=== PATIENT | male | born 2000 | race Caucasian/White ===

== ENCOUNTER 2022-06-04 19:19 | Day surgery (SDC) | payer BC ==
[2022-06-04] MEDS ORDERED: Sodium Chloride 0.9% 1,000 ML IV STA (19:58)
[2022-06-04] MEDS ORDERED: Sodium Chloride 0.9% 10 ML Syringe FLUSH PRN (19:58)
[2022-06-04] MEDS ORDERED: HYDROmorphone 0.5 MG/0.5 ML Syringe IVPUSH ONE (19:58)
[2022-06-04] MEDS ORDERED: Ondansetron 4 MG/2 ML SDV IVPUSH ONE (19:58)
[2022-06-04] MEDS ORDERED: Sodium Chloride 0.9% 10 ML Syringe FLUSH ONE (21:00)
[2022-06-04] MEDS ORDERED: Iopamidol 612 MG/ML 100 ML Bottle IVPUSH ONE (21:00)
[2022-06-04] MEDS ORDERED: Piperacillin/Tazobactam 4.5 GM in Sodium Chloride 0.9% 100 ML IV ONE (21:17)
[2022-06-04] MEDS ORDERED: Bupivacaine 0.5%/EPINEPHrine 1:200,000 50 ML MDV ONE (22:28)
[2022-06-04] MEDS ORDERED: Lidocaine 1% 30 ML SDV ONE (22:28)
[2022-06-04] MEDS ORDERED: Propofol 200 MG/20 ML SDV ONE (22:39)
[2022-06-04] MEDS ORDERED: Ondansetron 4 MG/2 ML SDV ONE (22:39)
[2022-06-04] MEDS ORDERED: Rocuronium 50 MG/5 ML Vial ONE (22:39)
[2022-06-04] MEDS ORDERED: Midazolam 1 MG/ML 2 ML SDV ONE (22:39)
[2022-06-04] MEDS ORDERED: Succinylcholine 200 MG/10 ML MDV ONE (22:40)
[2022-06-04] MEDS ORDERED: Lidocaine 1% 5 ML VIAL ONE (22:40)
[2022-06-04] MEDS ORDERED: fentaNYL 100 MCG/2 ML SDV ONE (22:50)
[2022-06-04] MEDS ORDERED: Dexamethasone 4 MG/ML 5 ML MDV ONE (23:07)
[2022-06-04] MEDS ORDERED: HYDROmorphone 0.5 MG/0.5 ML Syringe IVPUSH PRN (23:18)
[2022-06-04] MEDS ORDERED: Ondansetron 4 MG/2 ML SDV IVPUSH PRN (23:18)
[2022-06-04] MEDS ORDERED: fentaNYL 100 MCG/2 ML SDV IVPUSH PRN (23:18)
[2022-06-04] MEDS ORDERED: Neostigmine Methylsulfate 10 MG/10 ML MDV ONE (23:48)
[2022-06-04] MEDS ORDERED: Ketorolac 30 MG/ML SDV ONE (23:50)
[2022-06-04] MEDS ORDERED: Lactated Ringers 1,000 ML ONE (23:55)
== END 2022-06-05 01:55 | disposition home or self-care (01) ==
LOC: JD.ED 19:19 → JD.SDS 21:57
PROVIDERS: ATTEND Surgery
DX: K35.80 Unspecified acute appendicitis (principal); Z98.890 Other specified postprocedural states; Z68.41 Body mass index [BMI] 40.0-44.9, adult
CPT/HCPCS: 36415; 44970; 74177; 80053; 85025; 86140; 96361; 96374; 96375; 99285; J0330; J1100; J1170; J1885; J2250; J2405; J2543; J2704; J2710; J3490; J7030; J7120; Q9967; 00840; J3010